=== PATIENT | female | born 1975 | race Caucasian/White ===

== ENCOUNTER 2016-08-27 15:48 | Emergency (ER) | payer MEDICAID ==
[2016-08-27] MEDS ORDERED: ONDANSETRON 4 MG VIAL ONE (21:19)
[2016-08-27] MEDS ORDERED: DILAUDID 1 MG/ML AMP ONE ×2 (21:20→22:35)
[2016-08-27] MEDS ORDERED: SODIUM CHLORIDE 0.9% 1,000 ML ONE (21:20)
[2016-08-27] MEDS ORDERED: LORAZEPAM 2 MG/ML VIAL ONE (22:11)
[2016-08-28] MEDS ORDERED: DILAUDID 1 MG/ML AMP ONE (02:18)
== END 2016-08-28 02:36 | disposition home or self-care (01) ==
LOC: ER 15:48
CPT/HCPCS: 36415; 71020; 74181; 76705; 80053; 81003; 83690; 85025; 96374; 96375; 96376